=== PATIENT | female | born 1965 | race African-American/Black ===

== ENCOUNTER 2016-06-19 09:32 | Emergency (ER) | payer OTHER ==
--- NOTE | 2016-06-19 10:08 | PROVIDER DOCUMENTATION ---
Addendum entered and electronically signed by Monik Olmos Scribe 06/19/16 11: 10: Attestation - Scribe Verification/Attestation Scribe:: Monik Olmos Acting as Scribe for:: Kady Del Valle Scribsandra documention review:: This chart was documented by a scribe and accurately reflects the service the provider performed and the decisions made by the provider. Original Note: HPI-Musculoskeletal Pain/Inj - GENERAL Source: patient <Monik Olmos - Last Filed: 06/19/16 10:07> - GENERAL Source: patient - HX OF PRESENT ILLNESS-MUSKULOSKELTAL Quality of Pain: reports: sharp, stabbing Severity in ED: moderate Onset/Duration: 24 hours ago Timing: still present, getting worse Modifying Factors: improves with: movement (worsens), palpation (worsens), other (weight bearing worsens) Any recent injury?: Yes Locality of Occurance: Other (family house) Similar Symptoms Previously?: Yes Recently seen or treated by another doctor?: No - LOWER EXTREMITY PAIN/INJURY Lower Extremities Pain: knee: right Context / Method of Injury: reports: twisted - UPPER EXTREMITY PAIN/INJURY Extremities Pain Location: shoulder: right Context / Method of Injury: reports: twisted <Kady Del Valle - Last Filed: 06/19/16 10:31> - GENERAL Chief Complaint: Extremity Pain Stated Complaint: EXTREMITY PAIN Time Seen by Provider: 06/19/16 10:10 - HX OF PRESENT ILLNESS-MUSKULOSKELTAL Nature of Presenting Problem: 50 yo female presents to ER with c/o right knee pain. She is supposed to be referred to an orthopedic doctor about it. 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 Wearing a knee brace. She also has a rotator cuff tear to right shoulder and she is also supposed to see an orthopedic doctor about this once her insurance gets fixed. (Kady Del Valle) Review of Systems - Adult - REVIEW OF SYSTEMS - ADULT Constitutional: reports: no symptoms reported Eyes: reports: no symptoms reported Ears, Nose, Mouth & Throat: reports: no symptoms reported Cardiovascular: reports: no symptoms reported Respiratory: reports: no symptoms reported Gastrointestinal: reports: no symptoms reported Genitourinary: reports: no symptoms reported Musculoskeletal: reports: see HPI, joint pain (right knee and right shoulder) Integumentary: reports: no symptoms reported Neurological: reports: no symptoms reported Psychiatric: reports: no symptoms reported Endocrine: reports: no symptoms reported Hematologic/Lymphatic: reports: no symptoms reported Allergic/Immunologic: reports: no symptoms reported All Other Systems: Reviewed and Negative <Kady Del Valle - Last Filed: 06/19/16 10:31> Past History - Adult - PAST MEDICAL HISTORY-ADULT Review of Records: reports: Nursing Assessment Review, Medications Reviewed Cardiovascular: reports: cardiac disease, CAD, HTN, hyperlipidemia Respiratory: reports: asthma Gastrointestinal: reports: GERD Neurological: reports: Seizures/Epilepsy Endocrine/Immune: reports: Diabetes - PRIOR SURGERIES/PROCEDURES Surgical/Procedure History: reports: appendectomy, colonoscopy, cholecystectomy , hysterectomy - IMMUNIZATION STATUS Childhood Immunizations: See Nurse Assessment Flu Vaccine: See Nurse Assessment <Monik Olmos - Last Filed: 06/19/16 10:07> Physical Exam-Injury Related - Physical Exam-Injury Related Initial Vital Signs Reviewed: Yes General Appearance: appears well, alert, no apparent distress, obese Eyes: PERRL/EOMI Head, Ears, Nose, Mouth & Throat: normocephalic/atraumatic Respiratory: no respiratory distress Extremity: other (right knee-abnormal gait; limping on right side; TTP to posterior knee right shoulder- cannot raise above shoulder level; pain with ROM ) Integumentary: normal color, warm/dry Neurologic: grossly normal Psych/Mental Status: normal mood/affect, normal thought content, normal thought process, oriented x 3 - Glascow Coma Score Best Eye Response ([place]): (4) open spontaneously Best Verbal Response ([place]): (5) oriented Best Motor Response ([place]): (6) obeys commands [place] Total: 15 <Kady Del Valle - Last Filed: 06/19/16 10:31> Progress <Monik Olmos - Last Filed: 06/19/16 10:07> <Kady Del Valle. - Last Filed: 06/19/16 10:31> - PLAN OF CARE/RESULTS Progress/Plan/Lab Results: 1025-Discussed dx/tx/discharge and follow up with patient; she verbalized understanding. Vital Signs - 24 hr 06/19/16 09:51 Temperature 98 F Pulse Rate 94 H Respiratory 18 Rate Blood Pressure 177/92 O2 Sat by Pulse 97 Oximetry (Eligio.) Departure <Monik Olmos - Last Filed: 06/19/16 10:07> - Departure Time of Disposition Order: 10:30 Certified Medical Emergency: Emergent <EligioJuly. - Last Filed: 06/19/16 10:31> - Departure DIAGNOSIS: Right knee sprain Qualifiers: Encounter type: initial encounter Involved ligament of knee: unspecified ligament Qualified Code(s): S83.91XA - Sprain of unspecified site of right knee , initial encounter Shoulder pain, right Qualifiers: Chronicity: unspecified Qualified Code(s): M25.511 - Pain in right shoulder Disposition: HOME 01 Condition: Good Additional Instructions: Follow up with primary care doctor for pending referral to orthopedic doctor. Elevate right knee and apply ice to knee for 20 minutes several times a day. Apply ice to right shoulder for 20 minutes several times a day. Rest. Take medications as prescribed. ED Follow Up Instructions: You have been treated by a care provider in the Emergency Department. These instructions are being provided to you so you can have an understanding of how to care for yourself upon discharge. Upon discharge from the Emergency Department, you are responsible for making arrangements for follow-up care by a physician of your choice. Take all prescribed medications as directed. Return to the Emergency Department immediately for any new or worsening symptoms. You may call the Physician Referral phone number at [phone] to obtain a list of Physicians who are taking new patients. Prescriptions: Cyclobenzaprine [Flexeril] 10 mg PO TID PRN PRN #12 tablet PRN Reason: Pain Naproxen 500 mg PO BID PRN PRN #20 tablet PRN Reason: Pain Acetaminophen with Codeine [Tylenol with Codeine #3] 1 each PO Q6H PRN PRN #12 tablet PRN Reason: Pain Referrals: Bhavin Cohen MD [Primary Care Provider] - Attestation - Scribe Verification/Attestation Scribe:: Monik Olmos Scribe documention review:: This chart was documented by a scribe and accurately reflects the service the provider performed and the decisions made by the provider. <Monik Olmos - Last Filed: 06/19/16 10:07> - Physician/ JUNAID Attestation Patient care was provided by Advanced Practice Provider:: Yes Advanced Practice Provider:: Kady Del Valle Advanced Practice Provider documentation review:: The Mid-level provider documentation, treatment plan and medical decision making was reviewed by the physician who agrees with all treatment and medical decision making by the MLP. <Kady Del Valle - Last Filed: 06/19/16 10:31> Physician Attestation - Physician Attestation I, the provider, attest to the following statement:: Kady Del Valle Physician documentation Attestation:: This documentation recorded by the scribe accurately reflects the service I personally performed and the decisions made by me. <Kady Del Valle - Last Filed: 06/19/16 10:31>
[2016-06-19 11:30] VITALS: BP 149/79
== END 2016-06-19 11:29 | disposition home or self-care (01) ==
LOC: P.ED 09:32
DX: S83.91XA Sprain of unspecified site of right knee, initial encounter (principal); M25.511 Pain in right shoulder; M25.561 Pain in right knee; I25.10 Atherosclerotic heart disease of native coronary artery without angina pectoris; I10 Essential (primary) hypertension; E78.5 Hyperlipidemia, unspecified; K21.9 Gastro-esophageal reflux disease without esophagitis; E11.9 Type 2 diabetes mellitus without complications; Z79.899 Other long term (current) drug therapy; X58.XXXA Exposure to other specified factors, initial encounter; Z79.82 Long term (current) use of aspirin
CPT/HCPCS: 99282